=== PATIENT | female | born 1975 | race Caucasian/White ===

== ENCOUNTER 2020-06-20 15:53 | Outpatient (REF) | payer MEDICAID, SELFPAY ==
--- NOTE | 2020-06-20 15:15 | ENDOMET_PTH ---
PATIENT: Ita Carlton LOC: [facility] U#:[id number] AGE/SX: 44/F ROOM: RE06/20/[address]: Marisela Martin : 1975 BED: DIS: 06/20/2020 SPEC #: [id number] RECD: 06/20/20 18:16 STATUS: AMALIA REQ #: [id number] CARMEN: 06/20/20 15:[address]: Marisela Martin DEPT: Surgical Specimen RECD BY: Joselyn Alonzo ENTERED: 06/20/20 18:17 SP TYPE: Endomet OTHR DR: Rachel Ray DO Tissues: 1 - ENDOMETRIUM BX/CURRETTE Procedures: GROSS AND MICRO LEVEL 4 Comments: [id number]
== END 2020-06-20 16:13 ==
LOC: LBN 15:53
PROVIDERS: PCP Student in an Organized Health Care Education/Training Program; Visit Provider Obstetrics & Gynecology Gynecology
DX: N84.0 Polyp of corpus uteri (principal); N85.01 Benign endometrial hyperplasia; N85.8 Other specified noninflammatory disorders of uterus; N93.9 Abnormal uterine and vaginal bleeding, unspecified
CPT/HCPCS: 88305

== ENCOUNTER 2020-06-27 02:38 | Outpatient (CLI) | payer MEDICAID, SELFPAY ==
--- NOTE | 2020-06-27 07:30 | DI.US_ITS ---
EXAM: US PELVIS TRANSVAGINAL CLINICAL HISTORY: ABNL heavy uterine bleeding,N93.9 TECHNIQUE: Ultrasound of the pelvis was performed both transabdominal and transvaginal. COMPARISON: US LEFT BREAST ULTRASOUND from 06/19/2017 FINDINGS: UTERUS: Measures 10.4 cm length x 6.4 cm AP x 6.2 cm wide. There are multiple uterine fibroids noted. The largest of these is left-sided, measuring 3.6 x 2.9 x 2.2 cm Endometrial thickness measures 11 mm. There is no fluid in the endometrial canal. CERVIX: There are nabothian cysts seen in the upper cervix. RIGHT OVARY: Measures 5.5 x 3.3 x 3 cm Contains a unilocular cyst measuring 4.9 x 2.8 x 2.5 cm LEFT OVARY: Measures 2.4 x 1.6 x 2.8 cm Contains a cyst measuring 2 x 1.3 x 1.8 cm CUL-DE-SAC: No free fluid evident. IMPRESSION: 1. Multiple uterine fibroids noted. The largest measures 36 x 29 x 22 millimeters, left of center. Enter which will thickness is upper normal. There is no fluid in the endometrial canal. 2. Bilateral ovarian cysts. The largest cyst is in the right ovary and measures 49 x 28 x 25 millime ters. 3. No free fluid evident in the adnexal regions and cul-de-sac. DATA REPOSITORY:
== END 2020-06-27 02:58 ==
PROVIDERS: PCP Student in an Organized Health Care Education/Training Program; Visit Provider Obstetrics & Gynecology Gynecology
DX: D25.9 Leiomyoma of uterus, unspecified (principal); N83.292 Other ovarian cyst, left side; N83.291 Other ovarian cyst, right side
CPT/HCPCS: 76830; 76856

== ENCOUNTER 2021-01-18 12:26 | Outpatient (CLI) | payer MEDICAID, SELFPAY ==
--- NOTE | 2021-01-18 12:34 | DI.RAD_ITS ---
Exam(s) XR CHEST 2V PA LATERAL EXAM: XR CHEST 2V PA LATERAL CLINICAL HISTORY: cough, r/o pneumonina R05 COUGH Z87.01 PERS HX PNEUMONIA TECHNIQUE: 2D digital imaging was performed. COMPARISON: CR CHEST 2 VIEWS PA,LAT from 06/19/2017 FINDINGS: The heart is not enlarged. The lungs are clear and well expanded. No pleural effusion seen. Mediastin al contours appear intact. IMPRESSION: Normal chest. RADIATION DOSE DELIVERED: Total DLP
== END 2021-01-18 12:46 ==
PROVIDERS: PCP Student in an Organized Health Care Education/Training Program; Visit Provider Student in an Organized Health Care Education/Training Program
DX: R05 Cough (principal); Z87.01 Personal history of pneumonia (recurrent)
CPT/HCPCS: 71046

== ENCOUNTER 2021-05-10 00:46 | Outpatient (CLI) | payer MEDICAID, SELFPAY ==
--- NOTE | 2021-05-10 08:58 | DI.RAD_ITS ---
Exam(s) XR KNEE LT 3V AP,LAT,PARISH EXAM: XR KNEE LT 3V AP,LAT,PARISH CLINICAL HISTORY: lt knee pain, effusion,assess bony alignment,? bakers cyst vs effusion. TECHNIQUE: 2D digital imaging was performed. COMPARISON: CR LEFT ANKLE COMPLETE from 05/18/2011 CR LEFT TIB/FIB from 05/18/2011 CR LEFT TIB/FIB from 05/18/2011 CR LEFT ANKLE COMPLETE from 05/18/2011 FINDINGS: BONES: No acute fracture is present. No bony destructive lesion is seen. JOINTS: The knee is normally aligned. No joint effusion is seen. SOFT TISSUE: Normal. IMPRESSION: Normal radiographs of the left knee. DATA REPOSITORY: RADIATION DOSE DELIVERED:
== END 2021-05-10 01:06 ==
PROVIDERS: PCP Student in an Organized Health Care Education/Training Program; Visit Provider Nurse Practitioner Adult Health
DX: M25.462 Effusion, left knee (principal); M25.562 Pain in left knee
CPT/HCPCS: 73562

== ENCOUNTER 2021-06-13 02:30 | Outpatient (CLI) | payer MEDICAID, SELFPAY ==
--- NOTE | 2021-06-13 08:15 | DI.MAMMO_ITS ---
Exam(s) MAMMO SCREENING EXAM: MAMMO SCREENING CLINICAL HISTORY: screening,z12.39. TECHNIQUE: Bilateral full field digital CC and MLO mammographic images were obtained with 3D tomosyn thesis and utilizing computer aided detection (CAD). COMPARISON: Prior mammograms dating back to 2017, the most recent being diagnostic study of June 2017. Breast ultrasound June 2017 was also reviewed FINDINGS: In the lateral aspect of the left breast an asymmetric density-possible nodule measuring 8 by 7 danielle meters, located 15 cm the nipple on the CC 3D view, not previously present. Spot compression view and ultrasound recommended. No malignant-appearing microcalcification groups in this region. A microcalc ification group more medially and posteriorly in left breast is unchanged from 2017. In the opposite-right breast there is an asymmetric density-possible nodule seen slightly medial of c enter, approximately 8 cm in from the nipple and measuring approximately 6 x 5 millimeters. Spot comp ression view and possible ultrasound recommended. Similar density also seen on the right breast MLO v iew. There are no malignant-appearing microcalcification groups in the right breast There is no significant architectural distortion nor skin thickening-retraction. IMPRESSION: Bilateral asymmetric density-possible nodules. Bilateral spot compression views and ultrasound recomm ended. BI-RADS Category 0 - Assessment Incomplete: Need additional imaging evaluation Breast Density - Category B - Scattered areas of fibroglandular density Breast density Category C or D implies that the patient has dense breast tissue. Dense breast tissue can make it harder to find cancer on a mammogram. Dense breast tissue is also associated with an incr eased risk of breast cancer. This information about the result of the mammogram report was provided to the patient to raise their awareness. Use this report when you speak with the patient about their risks for breast cancer, which includes their family history. At that time, you may recommend additional screening tests (Ultrasoun d or MRI) as these tests may add significant information. A negative radiographic report should not delay biopsy if a dominant or clinically suspicious mass is present. Up to ten percent of cancers are not identified on mammography. A negative report may reinforce clinical impression. Adenosis and dense breasts may obscure an underlying neoplasm. False positive reports average 6 to 10%. Patient will receive a letter notifying them of these results.
== END 2021-06-13 02:50 ==
PROVIDERS: PCP Student in an Organized Health Care Education/Training Program; Visit Provider Student in an Organized Health Care Education/Training Program
DX: Z12.31 Encounter for screening mammogram for malignant neoplasm of breast (principal); R92.8 Other abnormal and inconclusive findings on diagnostic imaging of breast
CPT/HCPCS: 77063; 77067

== ENCOUNTER 2021-07-05 00:53 | Outpatient (CLI) | payer MEDICAID, SELFPAY ==
--- NOTE | 2021-07-05 08:30 | DI.MAMMO_ITS ---
Exam(s) US BREAST LT LIMITED MG MAMMO SCREEN CALL BACK BI EXAM: MG MAMMO SCREEN CALL BACK BI CLINICAL HISTORY: F/U ABNL MAMMO, BILATERAL ASYMMETRIC DENSITIES. TECHNIQUE: Craniocaudal and mediolateral oblique spot compression digital Mammography views of both breasts followed by Tomosynthesis and left breast ultrasound. COMPARISON: MG Screening Bilat Mammo from 05/21/2017 MG SCREENING - Call Back-Uni from 06/19/2017 MG MG MAMMO SCREENING from 06/13/2021 FINDINGS: Left mammography/Tomosynthesis: Left spot compression views: Persistent circumscribed nodule upper outer quadrant. Architectural Distortion: None seen. Microcalcifictions: No suspicious pleomorphic-type are seen. Skin Thickening/Nipple Retraction: None. Left breast US: Echotexture: Normal appearance of the glandular tissue. Shadowing: No suspicious foci. Cyst: 7 by 7 by 2 millimeter cyst upper outer quadrant, 2 o'clock, 12 cm from the nipple. Solid lesions: None seen. Ductal dilation: None. Right breast spot compression views: No persistent abnormality. Findings consistent with overlying fibroglandular tissue. IMPRESSION: 1. No evidence of malignancy is noted. 7 millimeter cyst corresponds to the circumscribed nodule in t he left upper outer quadrant on mammogram. No abnormalities seen in the right breast. 2. Unless there is more urgent need, follow-up screening mammography is recommended, as per [place] [employer] guidelines. BI-RADS Category 2 - Benign Findings Breast Density - Category B - Scattered areas of fibroglandular density A negative radiographic report should not delay biopsy if a dominant or clinically suspicious mass is present. Up to ten percent of cancers are not identified on mammography. A negative report may reinforce clinical impression. Adenosis and dense breasts may obscure an underlying neoplasm. False positive reports average 6 to 10%. Patient will receive a letter notifying them of these results.
== END 2021-07-05 01:13 ==
PROVIDERS: PCP Student in an Organized Health Care Education/Training Program; Visit Provider Student in an Organized Health Care Education/Training Program
DX: Z12.31 Encounter for screening mammogram for malignant neoplasm of breast (principal); R92.8 Other abnormal and inconclusive findings on diagnostic imaging of breast; N60.02 Solitary cyst of left breast; N60.81 Other benign mammary dysplasias of right breast
CPT/HCPCS: 76642; 77063; 77067

== ENCOUNTER 2021-09-16 04:02 | Outpatient (CLI) | payer MEDICAID, SELFPAY | END 2021-09-16 04:03 | disposition home or self-care (01) | LOC: LBO 04:02 | PROVIDERS: PCP Student in an Organized Health Care Education/Training Program; Visit Provider Obstetrics & Gynecology Gynecology ==

== ENCOUNTER 2021-09-16 04:12 | Outpatient (CLI) | payer MEDICAID, SELFPAY ==
[2021-09-16 09:16] LABS: HCT 40.1 % (36.0-46.0); MCHC 32.4 % (32.0-36.0); MCV 92.4 fL (80-95); MPV 9.2 fL (8.0-11.0); Platelet Count 234 10^3/uL (130-400); RBC 4.34 10^6/uL (3.93-5.22); RDW 14.5 % (11.7-14.6); RDW-SD 49.5 fL; WBC 6.29 10^3/uL (4.4-10.8)
[2021-09-16 10:25] LABS: Source Nasal/Nares
[2021-09-16 10:38] LABS: Anion Gap 6.8 mmol/L (3-11); BUN 14 mg/dL (7-18); CO2 26.2 mmol/L (21.0-32.0); CREATININE 0.9 mg/dL (0.55-1.02); Calcium 8.2 mg/dL (8.5-10.1); Chloride 107 mmol/L (98-107); Glucose 95 mg/dL (74-106); Potassium 4.4 mmol/L (3.5-5.1); Sodium 140 mmol/L (136-145)
[2021-09-16 10:45] LABS: HCG Qual (Serum) Negative
[2021-09-16 14:44] LABS: COVID-19 PCR Negative (Negative)
== END 2021-09-16 04:13 | disposition home or self-care (01) ==
LOC: LBO 04:12
PROVIDERS: PCP Student in an Organized Health Care Education/Training Program; Visit Provider Obstetrics & Gynecology Gynecology
DX: Z01.818 Encounter for other preprocedural examination (principal); Z20.822 Contact with and (suspected) exposure to COVID-19
CPT/HCPCS: 36415; 80048; 85027; 86850; 86900; 86901; 87635; 84703

== ENCOUNTER 2021-09-18 08:54 | Day surgery (SDC) | payer MEDICAID, SELFPAY ==
[2021-09-18 09:18] VITALS: BP 121/83; PULSE 76; RESP 14; TEMP 36.2; O2SAT 99
[2021-09-18] MEDS: Lactated Ringers 1,000 ML 125 ML IV (09:50)
--- NOTE | 2021-09-18 10:06 | W.ANESPRE ---
General Info Date of Service Date Performed: 09/18/21 Height: 5 ft 4 in Weight: 116.6 kg Body Mass Index (BMI): 44.1 Surgical Procedure: Operation Date: 09/18/21 11:10 Proposed Procedure Side Surgeon p Endometrial Ablation Marisela Martin MD Meds Allergies and Home Medications Allergies Allergy/AdvReac Type Severity Reaction Status Date / Time Opioids - Morphine Analogues AdvReac Severe Over-sedated Verified 09/17/21 10:46 with morphine Home Medication Medication Instructions Recorded albuterol sulfate 90 mcg/actuation 2 puff INHALATION QID PRN #8.5 g 01/18/21 aerosol inhaler naproxen 500 mg tablet 500 mg PO BID PRN #40 tab 05/08/21 etonogestrel 68 mg subdermal 1 implant SUBDERMAL ONCE #1 ea 06/12/21 implant (Nexplanon) omeprazole 10 mg capsule,delayed 10 mg PO DAILY 06/12/21 release Current Visit Medications: Current Medications Generic Name Dose Route Start Last Admin Trade Name Freq PRN Reason Stop Dose Admin Ringer's Solution 1,000 mls @ 125 mls/hr 09/18/21 06:00 09/18/21 09:50 IV 10/17/21 23:59 125 mls/hr INFUSION DIEGO Administration IV Miscellaneous Supplies 1 each 09/18/21 06:00 Iv Access IV 10/17/21 23:59 DIRECTED DIEGO Sodium Chloride 0 ml 09/18/21 06:00 Normal Saline Flush 10 Ml Syr IV 10/17/21 23:59 PRN PRN Sodium Chloride 0 ml 09/18/21 06:00 Normal Saline 10 Ml Vial IJ 10/17/21 23:59 DIRECTED PRN Sterile Water 0 ml 09/18/21 06:00 Water,Injection,Sterile 10 Ml Vial IJ 10/17/21 23:59 DIRECTED PRN PFSH Active Problems Active Problems: Problem Status Onset Code Nexplanon in place Z97.5 Nexplanon insertion Z30.017 Internal derangement of left knee M23.92 GERD (gastroesophageal reflux disease) K21.9 Fibroid uterus D25.9 Right foot pain M79.671 Itching of ear L29.9 Abnormal uterine bleeding (AUB) N93.9 Cervicalgia 07/31/11 M54.2 Heterozygous factor V Leiden mutation 08/10/13 D68.51 Medical History Active Problem List GERD (gastroesophageal reflux disease) (Chronic) Fibroid uterus (Acute) Right foot pain (Acute) Itching of ear (Acute) Abnormal uterine bleeding (AUB) (Acute) Cervicalgia (Acute 07/31/11) Heterozygous factor V Leiden mutation (Acute 08/10/13) Surgical History Surgical History Ligation of fallopian tube (~1992) Tobacco Smoking/Tobacco Use Status: Never Alcohol Alcohol Intake: never Substance Use Substance use: Never Substance use type: does not use Vital Signs and Lab Results Vital Signs Most Recent Vital Signs in EMR: Most Recent Vital Signs Temp Pulse Resp BP Pulse Ox 36.2 C L 76 14 121/83 99 09/18/21 09:18 09/18/21 09:18 09/18/21 09:18 09/18/21 09:18 09/18/21 09:18 Point of Care Results Point of Care Results: POC- Test(urine) Negative 09/18/21 09:25 Lab Results Blood Type / Crossmatch: Patient ABO/Rh O Positive 09/16/21 Antibody Screen NEGATIVE 09/16/21 Complete Blood Count: White Blood Count 6.29 10^3/uL (4.4-10.8) 09/16/21 09:00 09/16/21 Red Blood Count 4.34 10^6/uL (3.93-5.22) 09/16/21 09:00 09/16/21 Hemoglobin 13.0 g/dL (11.2-15.7) 09/16/21 09:00 09/16/21 Hematocrit 40.1 % (36.0-46.0) 09/16/21 09:00 09/16/21 Platelet Count 234 10^3/uL (130-400) 09/16/21 09:00 09/16/21 Complete Metabolic Panel: Sodium Level 140 mmol/L (136-145) 09/16/21 09:00 09/16/21 Potassium Level 4.4 mmol/L (3.5-5.1) 09/16/21 09:00 09/16/21 Chloride Level 107 mmol/L (98-107) 09/16/21 09:00 09/16/21 Carbon Dioxide Level 26.2 mmol/L (21.0-32.0) 09/16/21 09:00 09/16/21 Blood Urea Nitrogen 14 mg/dL (7-18) 09/16/21 09:00 09/16/21 Creatinine 0.9 mg/dL (0.55-1.02) 09/16/21 09:00 09/16/21 Estimated GFR/1.73 m2 >= 60.00 (mL/min/1.73m2) 09/16/21 09:00 09/16/21 Calcium Level 8.2 mg/dL (8.5-10.1) L 09/16/21 09:00 09/16/21 Glucose Level 95 mg/dL (74-106) 09/16/21 09:00 09/16/21 Liver Function Panel: No Data to Display Coagulation Panel: No Data to Display Cardiac Panel: No Data to Display Arterial Blood Gas: No Data to Display Venous Blood Gas: No Data to Display Pancreas Panel: No Data to Display Thyroid Panel: No Data to Display Infectious Disease: Coronavirus (COVID-19)(PCR) Negative (Negative) 09/16/21 09:08 09/16/21 Coronavirus 2019 Source Nasal/Nares 09/16/21 09:08 09/16/21 Blood Cultures: No Data to Display Toxicology Panel: No Data to Display Panel: Serum HCG, Qualitative Negative 09/16/21 09:00 09/16/21 Anesthesia Assessment and Plan Anesthesia History Personal History: No History of Anesthesia Complications Family History: No Family History of Anesthesia Complications Exercise Tolerance Exercise Tolerance: Metabolic Equivalents>4 Pertinent Negatives Pertinent Negatives: No Symptoms of GERD, No Major Cardiovascular Symptoms or Complaints, No Major Pulmonary Symptoms or Complaints and No History of CVA/TIA Cardiac & Pulmonary Exam Cardiac Exam: Normal S1/S2 Heart Sounds Pulmonary Exam: Clear Bilateral Breath Sounds Implantable Cardiac Device Does patient have a Pacemaker or an ICD?: No Airway Exam Known Difficult Airway: No Mallampati Class: 2 Mouth Opening: Normal (> 3cm) Thyromental Distance: Greater than 3 cm Neck Range of Motion: Full ROM Neck Circumference: Thick Teeth Condition: Normal Dentition ASA Classification ASA Score: ASA 3 Emergency Case?: No NPO Status NPO Status: NPO Clears >2 hours, Solids >8 hours Status Status: Negative HCG Anesthesia Plan Resuscitation Status: Full Code Anesthesia Technique: General Anesthesia Airway Planned: Natural Airway Monitors Used: Standard Monitors
[2021-09-18 10:23] VITALS: BMI 44.1
[2021-09-18] MEDS: Bupivacaine 0.25% Pres-Free 30 ML VIAL (11:42)
[2021-09-18 11:58] VITALS: BP 107/74; PULSE 83; RESP 16; TEMP 36.2; O2SAT 97
[2021-09-18 12:26] VITALS: BP 126/95; PULSE 68; RESP 16; TEMP 36.4; O2SAT 100
--- NOTE | 2021-09-18 12:28 | W.ANESPOSTOP ---
Postoperative Evaluation Date, Time and Location Date Performed: 09/18/21 Time Performed: 12:02 Patient Location: Day Surgery Unit Vital Signs Most Recent Imported Vital Signs: Most Recent Vital Signs Temp Pulse Resp BP Pulse Ox 36.2 C L 83 16 107/74 97 09/18/21 11:58 09/18/21 11:58 09/18/21 11:58 09/18/21 11:58 09/18/21 11:58 Pain Score Most Recent Pain Score: Most Recent Pain Score Pain Level 0 09/18/21 11:58 Assessment Mental Status: Awake (Alert & Oriented to Patient Baseline) Airway and Respiratory Function: Patent airway with normal (patient baseline) respiratory exam Cardiovascular Function: Hemodynamically Stable Hydration Status: Adequately Hydrated Nausea & Vomiting: No Nausea or Vomiting Pain: Pt. Denies Any Pain Peripheral Nerve Block: Patient did not receive a nerve block
--- NOTE | 2021-09-18 12:57 | PDOC.DSDIS_ITS ---
Discharge Plan Disposition Patient Disposition: HOME Condition: Good Discharge Details Reason For Visit: Hydrothermal endometrial ablation Attending Provider: Marisela Martin Primary Care Provider: Rachel Ray Home Meds and New Rx's Prescriptions: No Action omeprazole 10 mg capsule,delayed release(DR/EC) 10 mg PO DAILY 0RF Nexplanon 68 mg implant 1 implant subdermal ONCE Qty: 1 0RF Label Comments: pt. has in left upper inner arm Rx Instructions: as a single dose naproxen 500 mg tablet 500 mg PO BID PRN (Reason: pain) Qty: 40 0RF Rx Instructions: Start by taking with food 2x/d x4 days, then PRN knee pain. albuterol sulfate 90 mcg/actuation HFA aerosol inhaler 2 puff inhalation QID PRN (Reason: shortness of breath or wheezing) Qty: 8.5 1RF Rx Instructions: Dispense brand best covered under insurance Discharge Instructions Additional Instructions: You can expect vaginal discharge for the next 4 weeks. It may be yellow or clear. Ibuprofen 600mg [id number] medication every 6 hours for pain as needed. Use pads while you are having the discharge. Keep your follow-up appoint with Dr. Martin that was scheduled for approximately 2 weeks after surgery. Stand Alone Forms: DSU Post [employer] Surgery Activity:: Activity as Tolerated Diet:: As Tolerated Discharge Orders Discharge Orders: Discharge Order (Routine); Ordered 09/18/21 Ordered By: Marisela Martin
--- NOTE | 2021-09-23 19:49 | ROE_ITS ---
Date of service: 09/23/21 Time of Service: 19:49 Operative Note Operative Note DATE OF PROCEDURE: 09/18/21 PRE-OP DIAGNOSIS: Abnormal uterine bleeding POST-OP DIAGNOSIS: same PROCEDURE: Hydrothermal endometrial ablation with removal of Nexplanon. SURGEON: Marisela Martin Refer to Anesthesia Record ESTIMATED BLOOD LOSS: 0 PATHOLOGY: none sent COMPLICATIONS: None Patient was transported to: same day Patient's condition: stable Indications: Pt is a 46yo female with a history of abnormal uterine bleeding with prolonged heavy menses.??She was reluctant to use an IUD, or control pills to treat her bleeding. A Neplanon device was inserted and did not improve her heavy, irregular menses. Findings: Nl emdometrial cavity. No intracavitary masses noted. Good treatment effect noted after ablation completed. The Nexplanon was removed after the completion of the ablation. Procedure Description: Patient was taken to the operating room where she was placed in the dorsal supine position and LMA general anesthesia was administered without difficulty. She was then placed in the dorsolithotomy position in yellowfin stirrups and prepped and draped in the usual sterile fashion. SCDs were in place. No antibiotics were required. After a surgical timeout was performed a bivalve speculum was placed in the patient's vagina. The anterior lip of the cervix was infiltrated with 1 cc 0.25% bupivacaine and a single-tooth tenaculum was used to grasp the anterior lip of the cervix. A paracervical block was performed with infiltration of 5 cc of 0.25% bupivacaine at the 4 o'clock and 8 o'clock paracervical spaces respectively. Cervix was then sequentially dilated to a maximum of 16 Pineda. A hysteroscope sheath was inserted into the uterine cavity and a cavity assessment was performed with the above noted findings. The tip of the hysteroscope sheath was positioned to allow visualization of the uterine fundus, both tubal ostia in the midportion of the uterine cavity. The sheath was protected from the vaginal mohan by the vagina proximity to the speculum. Heated isotonic saline was then administered via gravity into the uterus through the sheath. Once a safety assessment was performed the treatment phase of the procedure began and under direct observation the uterine cavity was treated with heated isotonic saline at 90 ?C for 10 minutes. Intrauterine cool-down phase was performed for 1 minute. The uterine cavity was carefully assessed with hyste roscopy and was noted to have a satisfactory treatment effect and the integrity of the uterine cavity was confirmed. After these findings the hysteroscope was removed as were the instruments removed from the vagina. Tenaculum site was noted to be hemostatic. The speculum was removed and the patient placed in the dorsal supine position. After the completion of the ablation the skin over the old insertion site was cleansed with Betadine prior to infitration of the site with 0.25 Bupivicaine without Epinephrine. The old Nexplanon was palpated and the distal end incised with a #11 blade. The fibrous tissue over the old Nexplanon was dissected and the gloria grasped with curved forceps and removed intact. The edges of the excision site were re-approximated with a steri-strip and covered with a sterile dressing. She was successfully awakened from anesthesia and transported to day surgery unit in stable condition. All sponge lap needle counts correct x2
== END 2021-09-18 13:25 | disposition home or self-care (01) ==
PROVIDERS: PCP Student in an Organized Health Care Education/Training Program; Visit Provider Obstetrics & Gynecology Gynecology
PROC: (CPT 58353; principal; 2021-09-18 11:00)
DX: N93.9 Abnormal uterine and vaginal bleeding, unspecified (principal); D25.9 Leiomyoma of uterus, unspecified; K21.9 Gastro-esophageal reflux disease without esophagitis; D68.51 Activated protein C resistance
CPT/HCPCS: 58563; 11982; 81025; J1885; J2405

== ENCOUNTER 2022-04-21 18:07 | Outpatient (CLI) | payer MEDICAID, SELFPAY | END 2022-04-21 18:08 | disposition home or self-care (01) | LOC: DI.CM 18:07 | PROVIDERS: PCP Student in an Organized Health Care Education/Training Program; Visit Provider Physician Assistant | CPT/HCPCS: 93010 ==

== ENCOUNTER 2022-04-21 18:41 | Emergency (ER) | payer MEDICAID, SELFPAY ==
[2022-04-21 18:57] VITALS: BP 135/87; PULSE 83; RESP 16; TEMP 36.7; O2SAT 98
--- NOTE | 2022-04-21 19:15 | RT.EKG_ITS ---
APPROVED REPORT Exam: Resting ECG Reason for Exam: chest pain Patient Location: E HR:86 bpm ECG Measurements Heart Rate 86 AXIS DC 145 P 54 QRSd 94 QRS 42 QT 354 T 22 QTc 424 Conclusion Sinus rhythm...normal P axis, V-rate 60- 99 Physician: no stemi, inverted t waves in V1 and V2.
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
[2022-04-21] MEDS: Ketorolac 15 MG/ML VIAL IVP (19:53)
[2022-04-21] MEDS: Acetaminophen 500 MG TAB 1000 MG PO (19:53)
[2022-04-21] MEDS: Normal Saline 500 ML IV (19:54)
[2022-04-21 19:56] LABS: Abs Immature Grans 0.02 10^3/uL (0.0-0.06); Absolute Basophil Count 0.02 10^3/uL (0.0-0.2); Absolute Lymphocyte Count 2.54 10^3/uL (1.2-3.4); Absolute Monocyte Count 0.59 10^3/uL (0.1-0.8); Absolute Neutrophil Count 4.74 10^3/uL (1.2-6.7); Basophils % 0.2; Eosinophils % 1.2; HCT 40.8 % (36.0-46.0); HGB 13.6 g/dL (11.2-15.7); Immature Grans % 0.2; Lymphocytes % 31.7; MCH 30.6 pg (27.0-33.0); MCHC 33.3 % (32.0-36.0); MCV 92 fL (80-95); MPV 9.2 fL (8.0-11.0); Monocytes % 7.4; Neutrophils % 59.3; Platelet Count 235 10^3/uL (130-400); RBC 4.44 10^6/uL (3.93-5.22); RDW 13.9 % (11.7-14.6); WBC 8.01 10^3/uL (4.4-10.8)
[2022-04-21 20:13] LABS: ALT 20 U/L (14-59); AST 18 U/L (15-37); Albumin 3.3 g/dL (3.4-5.0); Alkaline Phosphatase 100 U/L (46-116); Anion Gap 5.6 mmol/L (3-11); BUN 16 mg/dL (7-18); Bilirubin, Total 0.4 mg/dL (0.2-1.0); CO2 31.4 mmol/L (21.0-32.0); Calcium 8.4 mg/dL (8.5-10.1); Chloride 107 mmol/L (98-107); Estimated GFR 69.93 (mL/min/1.73m2); Glucose 92 mg/dL (74-106); Potassium 3.7 mmol/L (3.5-5.1); Sodium 144 mmol/L (136-145); Troponin I < 50 ng/L (<or=60)
== END 2022-04-21 20:57 | disposition home or self-care (01) ==
PROVIDERS: Emergency Provider Student in an Organized Health Care Education/Training Program; PCP Student in an Organized Health Care Education/Training Program
DX: R07.9 Chest pain, unspecified (principal); M25.512 Pain in left shoulder; M54.9 Dorsalgia, unspecified; R07.89 Other chest pain
CPT/HCPCS: 36415; 80053; 93005; 96361; 96374; 99284; 84484; 85025; 93010; J1885

== ENCOUNTER 2022-08-01 13:33 | Outpatient (CLI) | payer SELFPAY ==
[2022-08-01 12:36] LABS: Abs Immature Grans 0.02 10^3/uL (0.0-0.06); Absolute Basophil Count 0.03 10^3/uL (0.0-0.2); Absolute Eosinophil Count 0.11 10^3/uL (0.0-0.7); Absolute Lymphocyte Count 2.04 10^3/uL (1.2-3.4); Absolute Monocyte Count 0.48 10^3/uL (0.1-0.8); Basophils % 0.4; Eosinophils % 1.3; HCT 41.5 % (36.0-46.0); HGB 13.9 g/dL (11.2-15.7); Immature Grans % 0.2; Lymphocytes % 24.6; MCH 30.4 pg (27.0-33.0); MCHC 33.5 % (32.0-36.0); MCV 91 fL (80-95); MPV 8.8 fL (8.0-11.0); Monocytes % 5.8; Neutrophils % 67.7; Platelet Count 242 10^3/uL (130-400); RBC 4.57 10^6/uL (3.93-5.22); RDW 13.2 % (11.7-14.6); RDW-SD 43.8 fL; WBC 8.28 10^3/uL (4.4-10.8)
[2022-08-01 13:08] LABS: ALT 37 U/L (14-59); AST 21 U/L (15-37); Albumin 3.4 g/dL (3.4-5.0); Alkaline Phosphatase 98 U/L (46-116); Anion Gap 6.1 mmol/L (3-11); BUN 11 mg/dL (7-18); Bilirubin, Total 0.7 mg/dL (0.2-1.0); CO2 29.9 mmol/L (21.0-32.0); Calcium 8.8 mg/dL (8.5-10.1); Calculated LDL 115 mg/dL (<100); Chloride 103 mmol/L (98-107); Cholesterol 198 mg/dL (<200); Estimated GFR 69.49 (mL/min/1.73m2); Glucose 89 mg/dL (74-106); HDL Cholesterol 69 mg/dL (40-60); Lipase 12 U/L (16-77); Potassium 3.8 mmol/L (3.5-5.1); Sodium 139 mmol/L (136-145); Total Protein 7.2 g/dL (6.4-8.2); Triglyceride 74 mg/dL (<150)
== END 2022-08-01 13:34 | disposition home or self-care (01) ==
LOC: LBO 13:38
PROVIDERS: PCP Student in an Organized Health Care Education/Training Program; Visit Provider Nurse Practitioner Family
DX: R19.7 Diarrhea, unspecified (principal); E66.3 Overweight; R53.83 Other fatigue; Z13.220 Encounter for screening for lipoid disorders
CPT/HCPCS: 36415; 80053; 80061; 83690; 84443; 85025

== ENCOUNTER 2022-08-01 15:29 | Outpatient (REF) | payer SELFPAY ==
[2022-08-01 17:03] LABS: C Diff PCR Negative (Negative)
[2022-08-03 19:21] LABS: Campylobacter PCR Negative (Negative); Salmonella PCR Negative (Negative); Shiga Toxin PCR Negative (Negative); Shigella/Enteroinvasive Ecoli Negative (Negative)
[2022-08-06 17:47] LABS: Calprotectin <50.0 mcg/g
== END 2022-08-01 15:30 | disposition home or self-care (01) ==
LOC: LBN 15:29
PROVIDERS: PCP Student in an Organized Health Care Education/Training Program; Visit Provider Nurse Practitioner Family
DX: R19.7 Diarrhea, unspecified (principal); K52.9 Noninfective gastroenteritis and colitis, unspecified
CPT/HCPCS: 87329; 87493; 87505; 83993

== ENCOUNTER 2022-08-05 15:54 | Outpatient (REF) | payer SELFPAY ==
[2022-08-06 08:53] LABS: Source Nasal/Nares
[2022-08-06 09:32] LABS: COVID-19 PCR Negative (Negative)
== END 2022-08-05 15:55 | disposition home or self-care (01) ==
LOC: LBN 15:54
PROVIDERS: PCP Student in an Organized Health Care Education/Training Program; Visit Provider Student in an Organized Health Care Education/Training Program
DX: R05.8 Other specified cough (principal); Z20.822 Contact with and (suspected) exposure to COVID-19
CPT/HCPCS: 87635; 87637

== ENCOUNTER 2023-09-21 18:24 | Emergency (ER) | payer OTHER, SELFPAY ==
[2023-09-21 18:27] VITALS: BP 162/104; PULSE 103; RESP 16; TEMP 36.4; O2SAT 99
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
[2023-09-21] MEDS: Acetaminophen 325 MG TAB 650 MG PO (19:32)
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
[2023-09-21] MEDS: Lidocaine 5% Patch 1 PATCH TP (21:07)
[2023-09-21] MEDS: Ketorolac 30 MG/ML VIAL IM (21:08)
[2023-09-21 22:04] VITALS: BP 144/91; PULSE 91; RESP 15; TEMP 36.6; O2SAT 99
== END 2023-09-21 22:04 | disposition home or self-care (01) ==
PROVIDERS: Emergency Provider Nurse Practitioner Family; PCP Student in an Organized Health Care Education/Training Program
DX: S13.4XXA Sprain of ligaments of cervical spine, initial encounter (principal); V44.5XXA Car driver injured in collision with heavy transport vehicle or bus in traffic accident, initial encounter
CPT/HCPCS: 81025; 96372; 99284; 72125; 73030; J1885

== ENCOUNTER → 2023-10-21 03:41 | Outpatient (CLI) | payer OTHER, SELFPAY ==
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
== END ==
PROVIDERS: PCP Student in an Organized Health Care Education/Training Program; Visit Provider Student in an Organized Health Care Education/Training Program
DX: M25.511 Pain in right shoulder (principal); M54.2 Cervicalgia
CPT/HCPCS: 73221

== ENCOUNTER 2024-03-31 15:35 | Outpatient (CLI) | payer OTHER, SELFPAY | END 2024-03-31 15:36 | disposition home or self-care (01) | LOC: DI.KIM 15:36 | PROVIDERS: PCP Student in an Organized Health Care Education/Training Program; Visit Provider Student in an Organized Health Care Education/Training Program | CPT/HCPCS: 93010 ==